=== PATIENT | male | born 2005 | race Asian ===

== ENCOUNTER 2025-05-03 02:03 | Outpatient (CLI) | payer BC, SELFPAY | END 2025-05-03 02:04 | disposition home or self-care (01) | LOC: AMB 05-05 16:28 | PROVIDERS: Visit Provider Family Medicine | DX: F41.9 Anxiety disorder, unspecified (principal); F12.10 Cannabis abuse, uncomplicated; F10.90 Alcohol use, unspecified, uncomplicated | CPT/HCPCS: A0425; A0429 ==

== ENCOUNTER 2025-05-03 02:24 | Emergency (ER) | payer BC, SELFPAY ==
--- OUTSIDE RECORDS SUMMARY | 2025-05-03 02:27 | XMS_ITS | Data Portability ---
Author Organization [facility] [email or web address] MCCULLOUGH Address [address] [place], [place] Assessment No assessment recorded. Plan of Treatment Reminders Order Date Submit Date Provider Last Modified By Organization Details Last Modified Time Details Appointments None recorded. Lab None recorded. Referral None recorded. Procedures None recorded. Surgeries None recorded. Imaging None recorded. Medication Orders dexamethas one 4 mg tablet 2024 025 [facility] [id number], [address] [place], [address], 5 15:13:40 cephalexin 500 mg capsule 2024 025 [facility] [id number], [address] [place], [address], 5 05:01:27 Patient TargetsNo targets recorded. Patient InstructionsNo instructions recorded. Reason for Referral None Reported. Problems Name Problem SNOMED Code Status Onset Date Resolution Date Notes Provider Name and Address Organization Details Recorded Time Hornet sting [id number] Active 2024 Karen Jo PA-C [address] [place] [address], [phone] [place] [address] 5 14:25:06 Cellulitis of right upper limb [id number] 9107 Active 2024 Karen Jo PA-C [address] [place] [address], [phone] [place] [address] 14:26:57 Notes:Concussion October 2022 Problem Notes None recorded. Medical Equipment None Reported. Allergies No known drug allergies Medications Name Sig Start Date Stop Date Status Note LastModified by Organization Details LastModified Time cephalexin 500 mg capsule Take 1 capsule 3 times a day by oral route for 7 days. 02/20 completed Not Available Not Available Not Available dexamethason e 4 mg tablet Take 2 tablets twice a day by oral route. 2024 active Not Available Not Available Not Avai lable Vitals Date Recorded Body height Body mass index (BMI) Body weight Heart rate Respiratory rate Oxygen saturation Oxygen saturation in Arterial blood by Pulse oximetry Body temperature Systolic And Diastolic Provider Name and Address Organization Details Last Updated DateTime 170.18 cm 29.8 kg/m2 65761.5 5 g 74 /min 18 /min 99 % 99 % 98.5 [degF] 118/80 mm[Hg] Bessy Cevallos [facility] 14:24:26 Social History Question Answer Notes LastModified by [email or web address] ion Details LastModified Time Tobacco Smoking Status [facility] 14:22:57 What Is Your Level Of Caffeine Consumption? Moderate [email or web address] Information not available 02/06/2025 What Is The Highest Grade Or Level Of School You Have Completed Or The Highest Degree You Have Received? [id number] [email or web address] Information not available 02/06/2025 Sex: Unknown Functional Status Question Answer Note LastModified by Organizat [employer] Details LastModified Time How many times per week do you consume alcohol? 1-2 times per week [email or web address] Information not available 02/06/2025 Do you use any illicit or recreational drugs? No [email or web address] Information not available 02/06/2025 Do you or have you ever used any other forms of tobacco or nicotine? No Information not available 02/06/2025 What is your level of alcohol consumption? Occasional [email or web address] Information not available 02/06/2025 Are you currently employed? Yes [email or web address] Information not available 02/06/2025 Mental Status None recorded. Family History Nothing Reported. Medical History No medical history recorded. Past Encounters Encounter ID Performer Location Encounter Start Date Encounter Closed Date Diagnosis/Indication Diagnosis SNOMED-CT Code Diagnosis ICD10 Code Diagnosis IMO Codes Diagnosis Note [id number] Tone Enamorado MD [facility] [address] [facility] [place] [address] 02/06/2025 14:03:34 02/06/2025 15:30:16 Hornet sting [id number] T63.451A [id number] Plan with patient and mom who is with him today and they expressed understand ing of continue cool compresses Zyrtec daily. He was given a one-time dose of Decadron in the office to help with the local reaction to his hornet sting. They will monitor symptoms closely and follow-up if not improving. He will go to the emergency room if he is having difficulty breathing or swallowing Cellulitis of right upper limb [id number] 1797274 L03.832 [id number] Due to the continued swelling and redness along with him working in a very dirty area we will cover with cephalexin for secondary infection. They will monitor symptoms closely he will try and keep his arm elevated and follow-up with Dr. Moses if not improving or worsening symptoms Health Concerns Section Related Observation LastModified by Organization Detai ls LastModified Time None Recorded Concern Status LastModified by Organization Details LastModified Time None Recorded Advance Directives Directive None Recorded Payers Insurance Date Sequence Insurance Name Policy Number Policy Anderson Covered Member ID Anderson Member ID Guarantor Name 02/07/2025 1 [facility] (PP[facility]) [id number] Mercedes Corea [id number] Khanh Anmol Notes Date Note Type Note Provider Name and Address Organization Details Recorded Time 02/06/2025 text/html ROS as noted in the HPI Khanh is a 20 year old male who presents to clinic today with hornet sting on right forearm on 02/04/25. Took benadryl yesterday and then again around 12 today. Used some cortisone and used ice pack intermetently. Karen Jo PA-C [address] [place] [address], [phone], [place] 02/06/2025 15:14:52
--- OUTSIDE RECORDS SUMMARY | 2025-05-03 02:27 | XMS_ITS | Patient Health Record ---
Author Organization [facility] [facility] Address [address] [place] [address] Care Team Providers Care Welt Stitch Cleaner Name Role Phone EVELYNE MOSES Primary Care Provider [phone] Evelyne Moses M.D. Unavailable Unavailable Allergies No Known Allergies Reason For Referral No Information Medications Medication SIG (Take, Route, Frequency, Duration) Notes Start Date End Date Status predniSONE 20 MG Tablet 3 tablets once a day for 3 days, 2 tablets once a day for 3 days, 1 tablet once a day for 3 days Orally Once a day; Duration: 9 days 12/25/2023 Active Nasacort Allergy 24HR Active predniSONE 20 MG Tablet 3 tablets once a day x 3 days 2 tablets once a day x3 days 1 tablet once a day x 3 days 1/2 tablet once a day x 3 days Orally Once a day; Duration: 12 days 02/13/2023 Not-Taking Amphetamine-Dextroamphet amine 15 MG Tablet 1 tablet Orally Twice a day; Duration: 30 days 02/13/2023 Active Immunizations Vaccine Route Administration Date Status Comme nts Varicella SCFP Unknown 05/25/2004 Administered Varicella SCFP Unknown 05/17/2012 Administered TB PPD SCFP ID Intradermal 02/01/2022 Administered TB PPD SCFP ID Intradermal 02/16/2022 Administered Prevnar 13 SCFP Unknown 08/13/2004 Administered Prevnar 13 SCFP Unknown 10/21/2004 Administered MMR SCFP Unknown 05/25/2004 Administered MMR SCFP Unknown 03/13/2008 Administered Menveo SCFP Unknown 10/02/2014 Administered Menactra MCV4P Unknown 02/21/2020 Administered IPV Unknown 08/13/2004 Administered IPV Unknown 10/21/2004 Administered IPV Unknown 03/02/2005 Administered IPV Unknown 03/13/2008 Administered Infanrix (DtaP) SCFP Unknown 05/25/2004 Administered Infanrix (DtaP) SCFP Unknown 08/13/2004 Administered Infanrix (DtaP) SCFP Unknown 08/13/2004 Administered Infanrix (DtaP) SCFP Unknown 10/21/2004 Administered Infanrix (DtaP) SCFP Unknown 03/13/2008 Administered Hepatitis B- Ped SCFP Unknown 05/25/2004 Administered Hepatitis B- Ped SCFP Unknown 08/13/2004 Administered Hepatitis B- Ped SCFP Unknown 03/02/2005 Administered Gardasil9 SCFP Unknown 02/08/2017 Administered Gardasil9 SCFP Unknown 01/30/2018 Administered Covid Pfizer 12+ Unknown 09/13/2021 Administered COVID Pfizer Unknown 10/30/2020 Administered COVID Pfizer Unknown 11/25/2020 Administered Boostrix SCFP Unknown 10/02/2014 Administered Social History Tobacco Use: Social History Observation Description Date Details (start date - stop date) Never Smoker NA - NA Social History Drugs/Alcohol: Social Info Question Answer Notes Alcohol Screen (Audit-C) Did you have a drink containing alcohol in the past year? Yes How often did you have a drink containing alcohol in the past year? Monthly or less (1 point) How many drinks did you have on a typical day when you were drinking in the past year? 1 or 2 drinks (0 point) How often did you have 6 or more drinks on one occasion in the past year? 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
[2025-05-03 02:40] VITALS: BP 144/78; PULSE 126; RESP 18; O2SAT 99; BMI 28.1
[2025-05-03 02:51] VITALS: BP 144/78; PULSE 124; RESP 20; TEMP 36.7; O2SAT 100; BMI 28.7
[2025-05-03] MEDS: ONDANSETRON ODT 4 MG TAB PO (03:34)
--- NOTE | 2025-05-03 03:53 | ED_ITS ---
HPI - General Adult General Chief complaint: Anxiety Stated complaint: ETOH Time Seen by Provider: 05/03/25 02:34 Source: patient Mode of arrival: ambulatory Limitations: no limitations History of Present Illness HPI narrative: 20-year-old male presents the emergency department by EMS complaining of anxiety and shaking. This started about 15 minutes after his 3rd shot of vodka, he had taken to THC gummies shortly before this as well. He was uncertain of the mg. He says that this has happened before with these medications but his last episode went well, he was hoping for similar results. He reports no major stressors or new traumas in his life. He does come accompanied by his favored stuffed animal which he says that he has had since age 6. Denies suicidal or homicidal thoughts. Denies other recreational pharmaceuticals tonight. No vomiting. Does feel little nauseated. No history of seizures or heart conditions. No recent falls, injury or trauma. He denies long-term medications, notes no allergies. No recent surgeries. ROS is notable for the generalized symptoms as above, otherwise denies times 12 systems. Related Data Home Medications ?Medication ?Instructions ?Recorded ?Confirmed No Known Home Medications 04/17/2504/02 Allergies Allergy/AdvReac Type Severity Reaction Status Date / Time No Known Drug Allergies Allergy Verified 05/03/25 02:41 PFSH PFS Social History Smoking Status: Never smoker Do you use any of these nicotine containing products: None Second hand tobacco smoke exposure: No How often do you have a drink containing alcohol: monthly or less How many standard drinks containing alcohol do you have on a typical day: 1 or 2 How often do you have six or more drinks on one occasion: Less than monthly AUDIT-C Alcohol total score: 2 Non-prescribed substance use: marijuana (any form) service: No Exam Const: Vital Signs, click to edit/add: Vital Signs - 24 hr 05/03/25 02:40 05/03/25 02:51 Temperature 98.0 F Pulse Rate [Right Pulse Oximeter] 126 H 124 H Respiratory Rate 18 20 Blood Pressure [Ri ght Upper Arm] 144/78 H 144/78 H Pulse Oximetry 99 100 Oxygen Delivery Me thod Room Air Room Air High Flow Nasal Cannula Documenting provider has reviewed patient's vital signs: yes Common normals: alert Other: Mildly anxious but redirectable. Good historian. Appears well nourished and well hydrated. HENMT: Common normals: normocephalic, moist oral mucous membranes and oropharynx normal Head and scalp: normocephalic Face and sinus: normal facial exam Eye: Common normals: conjunctivae normal General eye: normal appearance of both eyes Conjunctiva: conjunctiva(e) normal Neck & C-Spine: Common normals: no lymphadenopathy General: normal visual inspection Resp: Common normals: normal respiratory effort, no use of accessory muscles and clear to auscultation bilaterally Effort & inspection: able to speak in complete sentences Auscultation: clear to auscultation bilaterally Cardio: Common normals: regular rate, regular rhythm, S1 normal heart sound, S2 normal heart sound and no murmurs Rate: regular rate Rhythm: regular rhythm Heart sounds: S1 normal and S2 normal GI: Common normals: Normal to inspection, nondistended, normoactive bowel sounds present, soft to palpation, non-tender and no hepatosplenomegaly Palpation: soft and no hepatosplenomegaly Extremity: Common normals: normal to inspection and normal capillary refill Neuro: Common normals: CN's II-XII intact bilaterally, moves all extremities and no focal motor deficits Sensorium/orientation: alert Speech: speech normal Motor exam: strength 5/5 throughout Psych: Common normals: thought process normal Activity/motor behavior: appropriate eye contact Thought process: normal thought process Attention/concentration: attention grossly intact Memory/cognition: memory grossly intact Skin: Common normals: no rashes or lesions noted General skin exam: no rashes or lesions noted Course Course ED Course: 20-year-old male with tachycardia, anxiety and feeling of shaking after consumption of alcohol and recreational pharmaceuticals. No evidence of in potential overdose, toxic substances or suicidality. Counseled patient on findings. At this time he is not showing any signs of severe impairment. Her recommended a dose of Vistaril and Zofran for the nausea. He was agreeable to this. Will then do an oral fluid challenge and see how this goes. Will monitor for about another hour. This will be about 2 hours total from arrival. If he continues to improve anticipate discharge home with [place] safety. Counseled patient that he is likely to have similar results with continued use of these drugs. Recommended that he avoid this in the future. Vital Signs Vital signs: Initial Vital Signs Pulse Rate 126 H 05/03/25 02:40 Pulse Rhythm Regular 05/03/25 02:40 Pulse Strength 3+ Normal 05/03/25 02:40 Respiratory Rate 18 05/03/25 02:40 Blood Pressure 144/78 H 05/03/25 02:40 Blood Pressure Mean 100 05/03/25 02:40 Blood Pressure Position Supine 05/03/25 02:40 Pulse Oximetry 99 05/03/25 02:40 Oxygen Delivery Method Room Air 05/03/25 02:40 Vital Signs Pulse Rate 126 H 05/03/25 02:40 Respiratory Rate 18 05/03/25 02:40 Blood Pressure 144/78 H 05/03/25 02:40 Pulse Oximetry 99 05/03/25 02:40 Oxygen Delivery Method Room Air 05/03/25 02:40 Temperature 98.0 F 05/03/25 02:51 Pulse Rate 124 H 05/03/25 02:51 Respiratory Rate 20 05/03/25 02:51 Blood Pressure 144/78 H 05/03/25 02:51 Pulse Oximetry 100 05/03/25 02:51 Oxygen Delivery Method Room Air, High Flow Nasal Cannula 05/03/25 02:51 Medications Administered Medications: Discontinued Medications Generic Name Dose Route Start Last Admin Trade Name Kae PRN Reason Stop Dose Admin Hydroxyzine Pamoate 50 mg 05/03/25 03:28 05/03/25 03:34 Hydroxyzine Pamoate 25 Mg Capsule PO 05/03/25 03:29 50 mg ONCE ONE Administration Ondansetron HCl 4 mg 05/03/25 03:28 05/03/25 03:34 Ondansetron Odt 4 Mg Tab PO 05/03/25 03:29 4 mg ONCE ONE Administration Discharge Plan Discharge Clinical Impression: Drug side effects Patient Disposition: Home, Self-Care Condition: Improved Instructions: Adverse Drug Reaction (ED) Additional Instructions: I am glad that you are feeling at least somewhat better with the medications your given here in the emergency room. Unfortunately exam alcohol with THC can have unpredictable effects. I do think what happened tonight is a side effect that you can anticipate happening again should you choose to mix those agents. I do not recommend that you do this again in the future. It is okay to use Tylenol and ibuprofen for mild headache. It is okay to use gentle over the counter sleep aids like Benadryl, melatonin or Unisom to help you with sleep tonight. Follow-up with your primary care provider if you have difficulty with alcohol or THC complications in the future. you are cleared return to work and or school after 7:00 a.m. Activity Level: No Restrictions Discharge Diet: Regular Prescriptions: No Action No Known Home Medications Follow Up/Referrals: Provider,Not a Local [Primary Care Provider, Family Practice] Stand Alone Forms: [employer] Info Instructions
== END 2025-05-03 04:46 | disposition home or self-care (01) ==
PROVIDERS: Emergency Provider Family Medicine
DX: R25.1 Tremor, unspecified (principal); T40.715A Adverse effect of cannabis, initial encounter
CPT/HCPCS: 99283; A9270